=== PATIENT | female | born 1940 | race Caucasian/White ===

== ENCOUNTER 2025-07-14 09:44 | Outpatient (CLI) | payer MEDICARE, OTHER ==
--- NOTE | 2025-07-14 10:24 | RADIOLOGY REPORT ---
CLINICAL INDICATION: RIGHT FOOT PAIN TECHNIQUE: 3 radiographic views of the right foot were obtained. Comparison: None FINDINGS/IMPRESSION: There is no evidence of acute fracture or dislocation. Postsurgical changes are visualized in the talus and calcaneus. 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
== END 2025-07-14 23:59 | disposition home or self-care (01) ==
LOC: RAD 09:44
PROVIDERS: ATTEND Family Medicine
DX: M19.071 Primary osteoarthritis, right ankle and foot (principal); M79.671 Pain in right foot
CPT/HCPCS: 73630